=== PATIENT | male | born 1970 | race Two or more races ===

== ENCOUNTER 2018-06-23 10:46 | Emergency (ER) | payer OTHER | END 2018-06-23 12:48 | disposition home or self-care (01) | LOC: FTE 10:46 | DX: S49.92XA Unspecified injury of left shoulder and upper arm, initial encounter (principal); F17.210 Nicotine dependence, cigarettes, uncomplicated; W50.0XXA Accidental hit or strike by another person, initial encounter; Y92.9 Unspecified place or not applicable | CPT/HCPCS: 71045; 73030; 99284-25 ==